=== PATIENT | male | born 1990 | race Two or more races ===

== ENCOUNTER 2021-05-30 06:30 | Emergency (ER) | payer OTHER ==
[~2021-05-30] VITALS: Ht 182.9 cm; Wt 72.6 kg
[2021-05-30 07:02] LABS: BASOPHILS % (AUTO) 0.5 % (0.0-2.0); EOSINOPHILS % (AUTO) 3.3 % (0.0-6.0); HEMATOCRIT 34 % (39-51); HEMOGLOBIN 11.7 g/dL (13.5-17.5); LYMPHOCYTES # (AUTO) 2.6 K/uL (0.8-4.8); LYMPHOCYTES % (AUTO) 39.7 % (20.0-44.0); MEAN CORPUSCULAR HGB CONC 34 g/dl (31.0-36.0); MEAN CORPUSCULAR VOLUME 74 fL (80-96); MONOCYTES # (AUTO) 0.7 K/uL (0.1-1.30); MONOCYTES % (AUTO) 11.1 % (2.0-12.0); NEUTROPHILS % (AUTO) 45.4 % (43.0-81.0); PLATELET COUNT (AUTO) 399 K/uL (150-450); RED BLOOD CELL COUNT(AUTO) 4.62 MIL/uL (4.5-6.0); WHITE BLOOD COUNT (AUTO) 6.5 K/uL (4.3-11.0)
--- NOTE | 2021-05-30 07:02 | NUR ---
URINE COLLECTED SENT TO LAB
[2021-05-30 07:33] LABS: BILIRUBIN,URINE NEGATIVE (NEGATIVE); COLOR,URINE YELLOW (YELLOW); LEUKOCYTE ESTERASE ,URINE TRACE (NEGATIVE); NITRITE, URINE NEGATIVE (NEGATIVE); PROTEIN,URINE 30 mg/dl (NEGATIVE); UGLUCOSE NEGATIVE (NEGATIVE)
[2021-05-30 07:46] LABS: WBC,URINE 21-50 /HPF (0-3)
[2021-05-30 07:47] LABS: BACTERIA,URINE Rare /HPF (None Seen); SQUAMOUS EPITHELIAL CELL,UR Rare /HPF (None Seen)
[2021-05-30 07:58] LABS: CALCIUM, SERUM 8.1 mg/dL (8.5-10.1); CARBON DIOXIDE 30 mmol/L (21-32); CHLORIDE 105 mmol/L (98-107); CREATININE 0.8 mg/dL (0.6-1.3); GLUCOSE 96 mg/dL (74-106); POTASSIUM 3.2 mmol/L (3.5-5.1); SODIUM SERUM 142 mmol/L (136-145); UREA NITROGEN, BLOOD 18 mg/dL (7-18)
[2021-05-30 08:05] LABS: ALANINE AMINOTRANSFERASE 42 U/L (12-78); ALBUMIN 3.3 g/dL (3.4-5.0); ALKALINE PHOSPHATASE 70 U/L (46-116); ASPARTATE AMINOTRANSFERASE 28 U/L (15-37); BILIRUBIN,DIRECT 0.1 mg/dL (0.0-0.2); BILIRUBIN,TOTAL 0.5 mg/dL (0.2-1.0); TOTAL PROTEIN, SERUM 6.7 g/dL (6.4-8.2)
[2021-05-30 08:07] LABS: ACETAMINOPHEN < 2 ug/ml (10-30); ALCOHOL, BLOOD < 3 mg/dL (0-0)
--- NOTE | 2021-05-30 09:00 | NUR ---
PATIENT A/OX3, VERBALLY RESPONSIVE. BREATHING EVEN AND UNLABORED, NO SOB NOTED. EATING BREAKFAST.
[2021-05-30] MEDS ORDERED: OLANZAPINE 10 MG VIAL IM ONE ×2 (09:41→10:00)
--- NOTE | 2021-05-30 09:50 | NUR ---
PATIENT IS STILL HYPERVERBAL. INAPPROPRIATE TO STAFF.
--- NOTE | 2021-05-30 12:30 | NUR ---
SW attempted to assess pt. However, pt is sleeping and not rousable to verbal cues at time. Per EMR pt. was medicated given Zyprexa around 1000. SW placed homeless resources and waiver in pt.'s chart. SW will follow up at a lateer time.
[2021-05-30] MEDS ORDERED: HALOPERIDOL LACTATE INJ 5 MG/ML VIAL ONE (15:39)
[2021-05-30] MEDS ORDERED: diphenhydrAMINE HCL 50 MG/ML VIAL ONE (15:39)
[2021-05-30] MEDS ORDERED: LORAZEPAM INJ 2 MG/ML VIAL ONE (15:41)
[2021-05-30] MEDS ORDERED: LORAZEPAM INJ 2 MG/ML VIAL IM ONE (16:00)
[2021-05-30] MEDS ORDERED: diphenhydrAMINE HCL 50 MG/ML VIAL IM ONE (16:00)
[2021-05-30] MEDS ORDERED: HALOPERIDOL LACTATE INJ 5 MG/ML VIAL IM ONE (16:00)
--- NOTE | 2021-05-30 18:27 | NUR ---
PATIENT ASLEEP, NO DISTRESS NOTED.
--- NOTE | 2021-05-31 00:15 | NUR ---
PT RESTING COMFORTABLY. VSS.
--- NOTE | 2021-05-31 05:03 | NUR ---
PT AWAKE NOW, REQUESTING TO LEAVE. ER MD AWARE. WILL CALL CRISIS TEAM FOR EVAL.
--- NOTE | 2021-05-31 05:39 | NUR ---
PAGEAgustin GARCIA FOR PSYCH EVAL.
--- NOTE | 2021-05-31 06:48 | NUR ---
JOSE FROM CRISIS TEAM AT BED SIDE
--- NOTE | 2021-05-31 07:37 | NUR ---
COVID SWAB SENT.
--- NOTE | 2021-05-31 08:00 | NUR ---
THE PATIENT IS ALERT AND ORIENTED X3. VSS, DENIES ANY DISTRESS. WILL CONTINUE TO MONITOR THE PATIENT.
--- NOTE | 2021-05-31 11:06 | NUR ---
[facility] RES[facility] & [facility]
--- NOTE | 2021-05-31 11:20 | NUR ---
The patient denies any distress. VSS.
--- NOTE | 2021-05-31 12:14 | NUR ---
[facility] CALLED THEY WANT CLINICIAN EVAL. [address] ON HER WAY.
--- NOTE | 2021-05-31 12:30 | NUR ---
"Second Steward consult: industrial services worker requested for homeless and substance use. Patient is a 31-year-old, male. SW met with patient at his bedside in the emergency department. Patient was alert and oriented x3, name, time, and location. Patient presented hyperverbal and agitated. Per chart, patient was brought in by ambulance from the street on 05/30/21 for agitation and was found by [employer], walking into traffic. Patient is currently homeless but occasionally stays with his father, Adolph, at [address] [place] [address]. SW asked patient if he currently had a source of income and patient stated that he receives food stamps and [employer]. SW asked the patient about his history of substance use and patient reported daily use of cocaine, cannabis, and methamphetamine. SW assessed patients history of mental illness and patient reported history of Bipolar Disorder and stated that he is currently taking Zyprexa and Ativan. Patient denied current hallucinations or delusions. Patient denied current suicidal and homicidal ideation. SW offered the patient homeless resources and patient accepted the resources. Patient signed the homeless waiver and SW filed the waiver in the patients chart. SW discussed discharge plans with the patient. Patient requested voluntary inpatient psychiatric hospitalization. Per chart, patient was previously evaluated by flight control manager, Nehal Sahu, [facility], . Pending admission to [facility]. PLAN: Pending admission to [facility]. No further SS intervention at this time, however, SW will remain available as needed RESOURCES: Year-round shelters: [facility] [address] [phone] ; [facility] [place] [address] [place] [address]; [place] [id number] [facility] [address] SPA 4 | [facility] [place] Provider: First to Serve Address: [address], [address] # of Beds: 48 Population Served: [facility] Provider: First to Serve Address: [address] [facility], [address] # of Beds: 73 Population Served: [facility] 6 | [facility] Provider: Home at Last Address: [address] [facility], [address] # of Beds: 63 Population Served: [facility] 3 | [facility] Provider: [facility] [place] Address: [address] [facility], [address] # of Beds: 75 Population Served: [facility] 8 | [facility] Provider: [facility] [place] Address: [address] [facility], [address] # of Beds: 80 Population Served: [facility] SPA 1 | [facility] Provider: [facility] [place] Address: [id number] [place] [address], [address] # of Beds: 85 Population Served: [facility] 2 | [facility] Provider: [facility] Address: Confidential (please call for location) # of Beds: 52 Population Served: [facility] 4 | [facility] Provider: [facility] Address: [address] [facility], [address] # of Beds: 49 Population Served: [facility] Provider: First To Serve Address: [address] [place] [address], [address] # of Beds: 27 Population Served: [facility] Hygiene: [place] [facility]: [address] [address] [place] ; [place] [facility] [address] [facility] ; [facility] 6[address] Rahat Aguirre . Food Resources: [place] [facility] at [facility]- [address] Peña. [place]; Meet Each Need with [facility]ign[facility] ([facility]) [address] [facility]; [facility] 5[address] [facility]; [facility] 8032 [facility]. Mental Health resources provided: [facility] [address] [place] [address] ; [facility] [address] [facility] [address], [place], [place] [phone] ; [facility] [address] [facility] [address] ; [facility] [address] [place], [place] [address] Healthcare Clinics: [facility] [address] [facility], [address] [place]. [place] ; [facility] [address] [facility] [address] [place] [address]; [facility] [address] [facility]. [place] [address] [phone] Counseling--Outpatient [facility] [address] [facility], [address] [place], [place] [phone] (Specializes in in-depth psychotherapy for emotional distress: anxiety, depression, interpersonal conflicts, life transitions, childhood abuse) PSYCHIATRIC OUTPATIENT SERVICES [facility] Partial Hospitalization and Intensive Outpatient Program (Managed Care and [place] Only) [address] [facility]. [facility] [phone] [facility] Partial Hospitalization and Outpatient Program [address] Roseland[place]s include 234 beds at the [facility]. [address] [place], [place] [id number] [facility] Partial Hospitalization and Outpatient Program 4911 [facility] [place] [address] [facility] [place] [facility] [address] [facility]. [address] [place], [place] [id number] [facility] Partial Hospitalization and Outpatient Program [address] [place], [place] [phone] Substance use resources provided included: [facility] Substance Abuse Self-Helpline (SAS) ; [facility] [address] [facility] [place] [address] ; [facility] [address] [facility] [address] ; [facility] [address] [facility] [address] ; [facility] 4940 [facility] [id number] ; [facility] 909 [facility] [phone] ; [facility] [place]; [facility] [place]; [facility] Ronnie; Alcoholics Anonymous -SFV"
--- NOTE | 2021-05-31 13:01 | NUR ---
PATIENT A/OX4, REFUSING TO GO TO [facility] ANYMORE, DENIES SI/HI AT THIS TIME. PATIENT AMBULATORY WITH STEADY GAIT, HE STATES HE'S GOING TO HIS FRIENDS HOUSE. PROVIDED WITH FOOD AND CLOTHES. DR. ARCHULETA RE-EVALUATED PATIENT AND STS HE'S CLEAR FOR DISCHARGE. Patient discharged to home in stable condition. Written and verbal after care instructions given. Patient verbalizes understanding of instruction.
[2021-05-31 13:03] VITALS: BP 123/75
--- NOTE | 2021-05-31 16:36 | NUR ---
ELEN PAINTER (DAD)
== END 2021-05-31 13:04 | disposition home or self-care (01) ==
LOC: ER 06:32 → EDBD 06:32 → ER 05-31 13:04
DX: F15.129 Other stimulant abuse with intoxication, unspecified (principal); Z20.822 Contact with and (suspected) exposure to COVID-19; Z59.0 Homelessness; F19.10 Other psychoactive substance abuse, uncomplicated
CPT/HCPCS: 36415; 80048; 80076; 80143; 80307; 80320; 81001; 85025; 87086; 87426; 96372 ×2; 99285; C9803; J1200; J1630; J2060; J3490; G0480